=== PATIENT | female | born 1975 | race Caucasian/White ===

== ENCOUNTER 2018-06-20 15:49 | Emergency (ER) | payer OTHER ==
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
[2018-06-20] MEDS ORDERED: IBUPROFEN 600 MG TAB PO ONE (16:48)
[2018-06-20 18:36] VITALS: BP 118/75
== END 2018-06-20 18:36 | disposition home or self-care (01) ==
DX: S40.029A Contusion of unspecified upper arm, initial encounter (principal); V13.4XXA Pedal cycle driver injured in collision with car, pick-up truck or van in traffic accident, initial encounter; Y93.55 Activity, bike riding; Y92.410 Unspecified street and highway as the place of occurrence of the external cause